=== PATIENT | female | born 1985 | race Caucasian/White ===

== ENCOUNTER 2024-04-16 00:50 | Emergency (ER) | payer MEDICAID ==
[~2024-04-16] VITALS: Ht 160 cm; Wt 100.4 kg
[2024-04-16 00:55] VITALS: TEMP 98
[2024-04-16] MEDS: ACETAMINOPHEN 500 MG TABLET PO ONE (01:30)
[2024-04-16] MEDS: ONDANSETRON HCL 4 MG TABLET PO ONE (01:30)
[2024-04-16 03:00] VITALS: BP 132/67; PULSE 74; RESP 18
[2024-04-16] MEDS ORDERED: ACET-3385 PO (04:48)
== END 2024-04-16 04:55 | disposition home or self-care (01) ==
LOC: EMS 00:50
DX: S09.90XA Unspecified injury of head, initial encounter (principal); Z88.0 Allergy status to penicillin; Z98.890 Other specified postprocedural states; X58.XXXA Exposure to other specified factors, initial encounter; Y93.89 Activity, other specified; Y92.89 Other specified places as the place of occurrence of the external cause; Y99.8 Other external cause status
CPT/HCPCS: 99284; 70450; Q0162